=== PATIENT | male | born 1980 | race Caucasian/White ===

== ENCOUNTER 2017-06-09 17:02 | Emergency (ER) ==
[2017-06-09 17:14] VITALS: BP 140/82; TEMP 98.5; BMI 34.6
[2017-06-09 17:37] LABS: BILIRUBIN,URINE Negative (NEGATIVE); KETONES,URINE Negative (NEGATIVE); LEUKOCYTE ESTERASE ,URINE Negative (NEGATIVE); NITRITE,URINE Negative (NEGATIVE); PH,URINE 5.5 (5-9); PROTEIN,URINE Negative (NEGATIVE); URINE, BLOOD Negative (NEGATIVE)
[2017-06-09 17:38] LABS: ADD URINE MICROSCOPIC NO; BASOPHILS % (AUTO) 0.2 % (0.0-3.0); HEMATOCRIT 40.3 % (42.0-52.0); IMMATURE GRANULOCYTE % (AUTO) 0.5 % (0.0-5.0); LYMPHOCYTES # (AUTO) 1.4 K/uL (0.60-3.4); LYMPHOCYTES % (AUTO) 7.8 (10.0-50.0); MEAN CORPUSCULAR HEMOGLOBIN 29.4 pg (27.0-31.0); MEAN CORPUSCULAR HGB CONC 34.7 (31.8-35.4); MEAN CORPUSCULAR VOLUME 84.7 fl (80.0-94.0); MONOCYTES # (AUTO) 0.8 K/uL (0.4-2.0); MONOCYTES % (AUTO) 4.6 (0-10); NEUTROPHILS # (AUTO) 15.2 K/ul (2.0-6.9); NEUTROPHILS % (AUTO) 86.9; PLATELET COUNT 232 10^3/uL (140-440); RED BLOOD COUNT 4.76 10^6/ul (4.70-6.10); WHITE BLOOD COUNT 17.49 K/ul (4.2-10.2)
[2017-06-09 17:56] LABS: ALBUMIN/GLOBULIN RATIO 1.33; ANION GAP 13.5; BILIRUBIN,TOTAL 0.58 mg/dL (0.00-1.20); BUN/CREATININE RATIO 9.09; CALCIUM 9.7 mg/dL (8.2-10.2); CREATININE 0.88 mg/dL (0.60-1.10); POTASSIUM 3.5 mmol/L (3.5-5.1)
--- NOTE | 2017-06-09 18:21 | ED.PDOC ---
General ED Provider: Dr. MARK SINGH Chief Complaint: Fever Stated Complaint: ABDOMINAL PAIN, BACK PAIN Time Seen by Physician: 17:02 Mode of Arrival: Walk-In Information Source: Patient Exam Limitations: No limitations Primary Care Provider: LUISITO RAMIREZ Nursing and Triage Documentation Reviewed and Agree: Yes (THE ISSUES ARE ALL CHRONIC ) GI Complaint Exam - Abdominal Pain Complaint/Exam Onset: Gradual Duration: CHRONIC PAIN Symptoms Are: Still present Timing: Intermittent Initial Severity: Mild Current Severity: None Location of Pain: Diffuse Radiates To: Reports: Back, Flank Character: Reports: Dull, Aching Aggravating: Reports: Movement, Food, Position Alleviating: Reports: Rest, Position Associated Signs and Symptoms: Reports: Cough, Back pain. Denies: Diaphoresis, Fever, Chest pain, Dizziness, Constipation, Blood in stool, Dysuria, Urinary frequency, Decreased urine output, Decreased appetite, Discharge, Nausea, Vomiting, Diarrhea, Decreased activity Related History: Reports: Similar episode AAA Risk Factors: Reports: None Cardiac Risk Factors: Reports: None Testicular Torsion Risk Factors: Reports: None Surgical Obstruction Risk Factors: Reports: None Related Surgical History: Reports: None Abdominal Findings: Present: None Review of Systems - Review Of Systems Constitutional: Reports: No symptoms Eyes: Reports: No symptoms Ears, Nose, Mouth, Throat: Reports: No symptoms Respiratory: Reports: No symptoms Cardiac: Reports: No symptoms GI: Reports: Abdominal pain : Reports: No symptoms Musculoskeletal: Reports: No symptoms Skin: Reports: No symptoms Neurological: Reports: No symptoms Endocrine: Reports: No symptoms Hematologic/Lymphatic: Reports: No symptoms All Other Systems: Reviewed and Negative Past Medical History - Past Medical History Previously Healthy: Yes Endocrine: Reports: None Cardiovascular: Reports: None Respiratory: Reports: None Hematological: Reports: None Gastrointestinal: Reports: None Genitourinary: Reports: None Neuro/Psych: Reports: Anxiety, Bipolar Disorder Musculoskeletal: Reports: None Cancer: Reports: None - Surgical History General Surgical History: Reports: None - Family History Family History: Reports: None - Social History Smoking Status: Current every day smoker Hx Substance Use: No Alcohol Screening: None Physical Exam - Physical Exam Appearance: Well-appearing, No pain distress, Well-nourished Eyes: JARED, EOMI, Conjunctiva clear ENT: Ears normal, Nose normal, Oropharynx normal Respiratory: Airway patent, Breath sounds clear, Breath sounds equal, Respirations nonlabored Cardiovascular: RRR, Pulses normal, No rub, No murmur GI/: Soft, Nontender, No masses, Bowel sounds normal, No Organomegaly Musculoskeletal: Normal strength, ROM intact, No edema, No calf tenderness Skin: Warm, Dry, Normal color Neurological: Sensation intact, Motor intact, Reflexes intact, Cranial nerves intact, Alert, Oriented Psychiatric: Affect appropriate, Mood appropriate Interpretation - Radiology Interpretation Radiology Interpretation By: Radiologist Critical Care Note - Critical Care Note Total Time (mins): 0 Course - Course Hematology/Chemistry: 06/09/17 17:30 06/09/17 17:30 Orders, Labs, Meds: Lab Review 06/09/17 17:30 WBC 17.49 H RBC 4.76 Hgb 14.0 Hct 40.3 L MCV 84.7 MCH 29.4 MCHC 34.7 RDW Coeff of Cara 13.1 Plt Count 232 Immature Gran % (Auto) 0.5 Neut % (Auto) 86.9 Lymph % (Auto) 7.8 L Major % (Auto) 4.6 Eos % (Auto) 0.0 Baso % (Auto) 0.2 Immature Gran # (Auto) 0.1 Neut # 15.2 H Lymph # 1.4 Major # 0.8 Eos # 0.0 Baso # 0.0 Sodium 140 Potassium 3.5 Chloride 102 Carbon Dioxide 28 Anion Gap 13.5 BUN 8 Creatinine 0.88 Estimated GFR (MDRD) 97.00 BUN/Creatinine Ratio 9.09 Glucose 101 H Calcium 9.7 Total Bilirubin 0.58 AST 22 ALT 27 Alkaline Phosphatase 98 Total Protein 7.0 Albumin 4.0 Globulin 3.0 Albumin/Globulin Ratio 1.33 Urine Color Yellow Urine Clarity Clear Urine pH 5.5 Ur Specific Brady 1.025 Urine Protein Negative Urine Glucose (UA) Negative Urine Ketones Negative Urine Blood Negative Urine Nitrite Negative Urine Bilirubin Negative Urine Urobilinogen 1.0 Ur Leukocyte Esterase Negative Orders Category Date Time Status CBC W/ AUTO DIFF Stat LAB 06/09/17 17:30 Completed COMPREHENSIVE METABOLIC PANEL Stat LAB 06/09/17 17:30 Completed URINALYSIS C & S IF INDICATED Stat LAB 06/09/17 17:[address] ABDOMEN/PELVIS WO CONTRAST Stat RADS 06/09/17 17:[address] LUMBAR SPINE W/O CONTRAST Stat RADS 06/09/17 17:26 Taken Vital Signs: Temp Pulse Resp BP Pulse Ox 06/09/17 17:02 98.5 F 108 H 20 140/82 99 Departure - Departure Time of Disposition: 18:21 Disposition: HOME SELF-CARE Discharge Problem: Abdominal pain Qualifiers: Abdominal location: unspecified location Qualifier Code: (R10.9) Unspecified abdominal pain Back pain Qualifiers: Back pain location: low back pain Back pain laterality: midline Sciatica presence: without sciatica Instructions: Chronic Abdominal Pain (ED) Condition: Good Pt referred to PMD for follow-up: Yes Additional Instructions: Please call your Family Physician as soon as possible to schedule a follow-up appointment.RETURN FOR RECHECK BY FRANCISCO IN AM Allergies/Adverse Reactions: Allergies amoxicillin [From Augmentin] Adverse Reaction (Verified 06/09/17 17:10) clavulanic acid [From Augmentin] Adverse Reaction (Verified 06/09/17 17:10) Sulfa (Sulfonamide Antibiotics) Adverse Reaction (Verified 06/09/17 17:10) Home Medications: Ambulatory Orders Carbamazepine [Tegretol] 200 mg PO BEDTIME 06/09/17 Clonazepam [Klonopin] 0.5 mg PO TID 06/09/17 Lisinopril [Zestril] 20 mg PO DAILY 06/09/17 Ondansetron HCl [Zofran] 4 mg PO PRN PRN 06/09/17 Quetiapine Fumarate [Seroquel] 50 mg PO BEDTIME 06/09/17 Trazodone HCl [Desyrel] 50 mg PO DAILY 06/09/17 Disposition Discussed With: Patient
--- NOTE | 2017-06-09 18:24 | CT ---
EXAM: CT scan abdomen pelvis without contrast HISTORY: Nausea vomiting COMPARISON: CT scan abdomen pelvis 06/09/2011 FINDINGS: Contiguous axial images obtained from the lung bases to the symphysis pubis without contr ast utilizing 3-mm collimation. Sagittal coronal reconstructions were imaged and reviewed.. The vi sualized lung bases are clear. There has been prior cholecystectomy. The liver, pancreas, spleen a nd adrenal glands have normal unenhanced CT appearance. The kidneys morphologically normal. The ab dominal aorta is normal in course and caliber. There is normal appendix.. There is a metallic fore ign body anteriorly within the left lower pelvis creating moderate streak artifact.. Precise locatio n is difficult to identify due to streak artifact Bone windows reveals no evidence of lytic or divina tic lesions. IMPRESSION: Status post cholecystectomy. No acute intra-abdominal findings. Metallic foreign body left pelvis which may lie within the distal colon. Correlate with history
--- NOTE | 2017-06-09 18:31 | CT ---
Exam: CT lumbar spine without contrast. Clinical indication: Chronic low back pain. TECHNIQUE: Axial unenhanced CT images from the lower thoracic spine through the upper sacrum were o btained followed by coronal and sagittal reformats. There are no prior studies available for comparison. Findings: There are five non-rib bearing lumbar vertebra. The alignment of the lumbar spine is within normal limits. The T12-L1, and L1-L2 levels are within normal limits for the patient's age, without spinal stenosis or neural foraminal narrowing. At the L2-L3 level there is a mild broad-based posterior disc bulge associate with mild facet degene rative changes, but no spinal stenosis or neural foraminal narrowing. At the L3-L4 level there is a mild broad-based posterior disc bulge associate with mild facet degene rative changes, causing mild to moderate right and mild left neural foraminal narrowing. At the L4-L5 level there is a mild broad-based posterior disc bulge associate with minimal facet deg enerative changes, causing mild bilateral neural foraminal narrowing. At the L5 S1 level there is a mild posterior disc bulge, but no spinal stenosis or neural foraminal narrowing. The visualized soft tissues are unremarkable. Impression: 1. No acute lumbar fracture. 2. Multilevel degenerative changes with neural foraminal narrowing, as described above on the level by level basis.
== END 2017-06-09 18:47 | disposition home or self-care (01) ==
LOC: ED 17:02
DX: R10.9 Unspecified abdominal pain (principal); M54.5 Low back pain; G89.29 Other chronic pain; F17.210 Nicotine dependence, cigarettes, uncomplicated
CPT/HCPCS: 36415; 80053; 81001; 85025; 99283